=== PATIENT | male | born 1960 | race Native Hawaiian/Other Pacific Islander ===

== ENCOUNTER 2016-04-19 17:09 | Emergency (ER) | payer OTHER ==
[~2016-04-19] VITALS: Ht 188 cm; Wt 124.7 kg
[~2016-04-19 17:09] MED LIST: ALPR0.5T24 PO; CLARITIN10 MG PO; DILT30TA24 PO; DILTCAP36 PO; FLUOXETINE40 MG PO; FURO40TA93 PO; GLYDO EX; HYDR-2748 PO; LOPRESSOR100 MG PO; NEURONTIN800 MG PO; POTA20TA4 PO; PRAVACHOL80 MG PO; TRAM50TA PO; VITAMIN D32000 UNI1 PO; WARFARIN5 MG PO
[2016-04-19 17:24] VITALS: TEMP 98.3
[2016-04-19 17:49] LABS: PLATELET COUNT 379 K/uL (142-355)
[2016-04-19 18:08] LABS: POTASSIUM 4.1 mmol/L (3.6-5.2)
[2016-04-19 18:32] VITALS: BP 104/60
== END 2016-04-19 18:32 | disposition home or self-care (01) ==
LOC: ED 17:09
PROVIDERS: Emergency Medicine
DX: K52.9 Noninfective gastroenteritis and colitis, unspecified (principal)
CPT/HCPCS: 36415; 80053; 85027; 96361; 96374; 99284; J2405

== ENCOUNTER 2016-04-19 22:55 | Emergency (ER) | payer OTHER ==
[~2016-04-19] VITALS: Ht 190.5 cm; Wt 123.8 kg
[2016-04-19 23:42] VITALS: BP 132/80; TEMP 98.9
== END 2016-04-19 23:42 | disposition home or self-care (01) ==
LOC: ED 22:55
DX: R19.7 Diarrhea, unspecified (principal)
CPT/HCPCS: 99282

== ENCOUNTER 2016-08-29 16:31 | Emergency (ER) | payer OTHER ==
[~2016-08-29] VITALS: Ht 190.5 cm; Wt 126.1 kg
[2016-08-29 16:48] VITALS: TEMP 98.3
[2016-08-29 18:45] VITALS: BP 130/82
== END 2016-08-29 18:45 | disposition home or self-care (01) ==
LOC: ED 16:31
DX: J40 Bronchitis, not specified as acute or chronic (principal)
CPT/HCPCS: 96372; 99283; J0696

== ENCOUNTER 2016-09-14 19:26 | Emergency (ER) | payer OTHER ==
[~2016-09-14] VITALS: Ht 190.5 cm; Wt 127.0 kg
[2016-09-14 20:09] VITALS: BP 189/98; TEMP 99.2
== END 2016-09-14 20:28 | disposition home or self-care (01) ==
LOC: ED 19:26
PROC: 0HQFXZZ Repair Right Hand Skin, External Approach (ICD-10-PCS; principal; 2016-09-14)
DX: S61.011A Laceration without foreign body of right thumb without damage to nail, initial encounter (principal); W26.0XXA Contact with knife, initial encounter; Y92.098 Other place in other non-institutional residence as the place of occurrence of the external cause
CPT/HCPCS: 99283

== ENCOUNTER 2017-01-24 15:56 | Emergency (ER) | payer OTHER ==
[~2017-01-24] VITALS: Ht 190.5 cm; Wt 126.6 kg
[2017-01-24 16:05] VITALS: BP 113/58; TEMP 98
== END 2017-01-24 16:40 | disposition home or self-care (01) ==
LOC: ED 15:56
DX: S61.211A Laceration without foreign body of left index finger without damage to nail, initial encounter (principal); W26.0XXA Contact with knife, initial encounter; Y92.098 Other place in other non-institutional residence as the place of occurrence of the external cause
CPT/HCPCS: 99281

== ENCOUNTER 2017-03-21 05:33 | Emergency (ER) | payer OTHER ==
[~2017-03-21] VITALS: Ht 190.5 cm; Wt 131.5 kg
[2017-03-21 05:51] VITALS: TEMP 98.2
[2017-03-21 06:13] LABS: POTASSIUM 3.6 mmol/L (3.6-5.2); SODIUM 136 mmol/L (136-145)
[2017-03-21 06:28] LABS: PLATELET COUNT 247 K/uL (142-355)
[2017-03-21 07:28] VITALS: BP 132/87
== END 2017-03-21 07:29 | disposition home or self-care (01) ==
LOC: ED 05:33
DX: N39.0 Urinary tract infection, site not specified (principal); R31.9 Hematuria, unspecified
CPT/HCPCS: 36415; 80053; 81000; 85027; 99283

== ENCOUNTER 2017-03-25 08:27 | Outpatient (CLI) | payer OTHER | END 2017-03-25 08:30 | disposition short-term general hospital (02) | LOC: AMB 08:27 | DX: M54.2 Cervicalgia (principal); R07.81 Pleurodynia; V59.49XA Driver of pick-up truck or van injured in collision with other motor vehicles in traffic accident, initial encounter; Y92.488 Other paved roadways as the place of occurrence of the external cause | CPT/HCPCS: A0425; A0427 ==

== ENCOUNTER 2017-03-25 08:36 | Emergency (ER) | payer OTHER ==
[~2017-03-25] VITALS: Ht 190.5 cm; Wt 136.1 kg
[2017-03-25 11:16] VITALS: BP 127/53; TEMP 98.2
== END 2017-03-25 11:18 | disposition home or self-care (01) ==
LOC: ED 08:36
DX: S20.212A Contusion of left front wall of thorax, initial encounter (principal); S20.211A Contusion of right front wall of thorax, initial encounter; M50.30 Other cervical disc degeneration, unspecified cervical region; S10.91XA Abrasion of unspecified part of neck, initial encounter; V43.52XA Car driver injured in collision with other type car in traffic accident, initial encounter
CPT/HCPCS: 36415; 96374; 96375; 99284; J1885; J2405

== ENCOUNTER 2017-03-26 16:12 | Emergency (ER) | payer OTHER ==
[~2017-03-26] VITALS: Ht 190.5 cm; Wt 136.1 kg
[2017-03-26 16:27] VITALS: TEMP 97.9
[2017-03-26 17:51] VITALS: BP 132/62
== END 2017-03-26 17:55 | disposition home or self-care (01) ==
LOC: ED 16:12
DX: S22.39XA Fracture of one rib, unspecified side, initial encounter for closed fracture (principal)
CPT/HCPCS: 96373; 99283; J2360

== ENCOUNTER 2017-04-01 13:35 | Observation (INO) | payer OTHER ==
[~2017-04-01] VITALS: Ht 190.5 cm; Wt 135.2 kg
[2017-04-01 14:05] VITALS: BP 128/86; TEMP 98.2
[2017-04-01 17:00] VITALS: BP 146/90
[2017-04-01 17:10] LABS: PLATELET COUNT 334 K/uL (142-355)
[2017-04-01 17:20] LABS: POTASSIUM 3.9 mmol/L (3.6-5.2)
[2017-04-01 18:00] VITALS: BP 176/96
--- NOTE | 2017-04-01 18:50 | NUR ---
RECEIVED FROM ER VIA WC. ALERT AND ORIENTED X 3. PATIENT GIVEN EDUCATION REGARDING CALL LIGHT AND BED CONTROLS. INSTRUCTED TO KEEP BED IN LOW POSITION. 20G SALINE LOCK TO LAC INTACT AND PATENT. FAMILY AT BEDSIDE. NO DISTRESS NOTED.
[2017-04-01 20:12] VITALS: BP 135/89; TEMP 97.9; Ht 190.5 cm; Wt 135.2 kg
[2017-04-02] VITALS: BP 135/85; TEMP 98.4
[2017-04-02 04:00] VITALS: BP 139/77; TEMP 97.7
[2017-04-02 05:38] LABS: POTASSIUM 4.4 mmol/L (3.6-5.2)
[2017-04-02 05:53] LABS: PLATELET COUNT 322 K/uL (142-355)
[2017-04-02 07:17] VITALS: BP 144/92; TEMP 97.8
[2017-04-02 11:27] VITALS: BP 120/81; TEMP 98
[2017-04-02 11:58] LABS: PARTIAL THROMBOPLASTIN TIME 30.3 SECONDS (24.5-33.6)
[2017-04-02 16:12] VITALS: BP 145/68; TEMP 97.8
[2017-04-02 19:55] VITALS: BP 142/83; TEMP 97.7
[2017-04-03] VITALS: BP 150/75; TEMP 97.7
[2017-04-03 04:00] VITALS: BP 139/76; TEMP 97.3
[2017-04-03 06:30] LABS: PLATELET COUNT 340 K/uL (142-355)
[2017-04-03 08:00] VITALS: BP 151/78; TEMP 97.8
[2017-04-03 12:00] VITALS: BP 143/81; TEMP 98
--- NOTE | 2017-04-03 14:43 | NUR ---
20G IV TO THE LEFT AC D/C AT THIS TIME WITH TIP INTACT. DISCHARGE INSTRUCTIONS GIVEN AT THIS TIME. PT VERBALIZED UNDERSTANDING AND DISCHARGE INSTRUCTIONS WERE SIGNED AT THIS TIME. PT D/C VIA WHEELCHAIR.
== END 2017-04-03 14:45 | disposition home or self-care (01) ==
LOC: ED 13:35 → MED/SURG 17:14
DX: S06.5X9A Traumatic subdural hemorrhage with loss of consciousness of unspecified duration, initial encounter (principal); R51 Headache; I48.91 Unspecified atrial fibrillation; I10 Essential (primary) hypertension; S06.1X9A Traumatic cerebral edema with loss of consciousness of unspecified duration, initial encounter
CPT/HCPCS: 36415; 80053; 82150; 83690; 85027; 85610; 85730; 94760; 96374; 99220; 99284; G0378; J1885; J1940

== ENCOUNTER 2017-04-17 19:23 | Emergency (ER) | payer OTHER ==
[~2017-04-17] VITALS: Ht 188 cm; Wt 136.1 kg
[2017-04-17 19:58] VITALS: BP 122/74; TEMP 97.5
== END 2017-04-17 20:20 | disposition home or self-care (01) ==
LOC: ED 19:23
DX: R22.0 Localized swelling, mass and lump, head (principal)
CPT/HCPCS: 99281

== ENCOUNTER 2017-05-12 07:44 | Outpatient (CLI) | payer OTHER | END 2017-05-12 08:44 | disposition home or self-care (01) | LOC: CT 07:44 | DX: Z09 Encounter for follow-up examination after completed treatment for conditions other than malignant neoplasm (principal); Z87.820 Personal history of traumatic brain injury | CPT/HCPCS: 36415; 82565; 84520 ==

== ENCOUNTER 2018-01-21 16:15 | Emergency (ER) | payer OTHER ==
[~2018-01-21] VITALS: Ht 185.4 cm; Wt 136.1 kg
[2018-01-21 17:26] VITALS: BP 127/81; TEMP 98.1
== END 2018-01-21 17:29 | disposition home or self-care (01) ==
LOC: ED 16:15
PROC: 0HQGXZZ Repair Left Hand Skin, External Approach (ICD-10-PCS; principal; 2018-01-21)
DX: S61.211A Laceration without foreign body of left index finger without damage to nail, initial encounter (principal); X58.XXXA Exposure to other specified factors, initial encounter
CPT/HCPCS: 99283

== ENCOUNTER 2018-03-02 03:18 | Emergency (ER) | payer OTHER ==
[~2018-03-02] VITALS: Ht 185.4 cm; Wt 136.1 kg
[2018-03-02 03:28] VITALS: BP 131/94; TEMP 97.7
== END 2018-03-02 04:11 | disposition home or self-care (01) ==
LOC: ED 03:18
DX: M54.5 Low back pain (principal)
CPT/HCPCS: 99281

== ENCOUNTER 2018-07-30 06:55 | Emergency (ER) | payer OTHER ==
[~2018-07-30] VITALS: Ht 190.5 cm; Wt 136.1 kg
[2018-07-30 07:00] VITALS: TEMP 98.4
[2018-07-30] MEDS ORDERED: FERROUS SULF325 M1 PO (07:23)
[2018-07-30] MEDS ORDERED: MULTIVITAMI1 PO (07:24)
[2018-07-30 08:13] VITALS: BP 128/74
== END 2018-07-30 08:13 | disposition home or self-care (01) ==
LOC: ED 06:55
DX: M51.36 Other intervertebral disc degeneration, lumbar region (principal); X50.1XXA Overexertion from prolonged static or awkward postures, initial encounter
CPT/HCPCS: 96372; 99283; J1885

== ENCOUNTER 2018-10-22 06:20 | Emergency (ER) | payer OTHER ==
[~2018-10-22] VITALS: Ht 190.5 cm; Wt 136.1 kg
[~2018-10-22 06:20] MED LIST changes: +FERROUS SULF325 M1 PO; +MULTIVITAMI1 PO
[2018-10-22 07:30] VITALS: BP 135/85; TEMP 97.7
== END 2018-10-22 07:30 | disposition home or self-care (01) ==
LOC: ED 06:20
DX: N48.1 Balanitis (principal); N47.1 Phimosis
CPT/HCPCS: 81000; 96372; 99282; 99283; J0696

== ENCOUNTER 2019-03-08 01:48 | Emergency (ER) | payer OTHER ==
[~2019-03-08] VITALS: Ht 190.5 cm; Wt 138.3 kg
[2019-03-08 02:57] VITALS: BP 112/64; TEMP 97.7
== END 2019-03-08 02:57 | disposition home or self-care (01) ==
LOC: ED 01:48
DX: M25.512 Pain in left shoulder (principal); G89.29 Other chronic pain
CPT/HCPCS: 96372; 99283; J1885; J2930

== ENCOUNTER 2019-04-21 18:32 | Emergency (ER) | payer OTHER ==
[~2019-04-21] VITALS: Ht 190.5 cm; Wt 138.3 kg
[2019-04-21 19:50] VITALS: BP 104/42; TEMP 97.9
== END 2019-04-21 19:50 | disposition home or self-care (01) ==
LOC: ED 18:32
DX: M19.012 Primary osteoarthritis, left shoulder (principal); G89.29 Other chronic pain
CPT/HCPCS: 99282

== ENCOUNTER 2019-05-14 02:29 | Emergency (ER) | payer OTHER ==
[~2019-05-14] VITALS: Ht 190.5 cm; Wt 138.3 kg
[2019-05-14 02:55] LABS: PLATELET COUNT 288 K/uL (142-355)
[2019-05-14 03:35] LABS: POTASSIUM 3.9 mmol/L (3.6-5.2); SODIUM 140 mmol/L (136-145)
[2019-05-14 03:55] LABS: PARTIAL THROMBOPLASTIN TIME 27.9 SECONDS (24.5-33.6)
[2019-05-14 04:15] VITALS: BP 124/64; TEMP 97.9
== END 2019-05-14 04:15 | disposition home or self-care (01) ==
LOC: ED 02:29
PROVIDERS: Hospitalist
DX: I48.91 Unspecified atrial fibrillation (principal)
CPT/HCPCS: 36415; 80053; 82550; 83880; 84484; 85027; 85610; 85730; 93005; 96374; 99284; J1650; J3490

== ENCOUNTER 2019-09-06 16:21 | Emergency (ER) | payer OTHER ==
[~2019-09-06] VITALS: Ht 190.5 cm; Wt 139.7 kg
[2019-09-06 16:30] VITALS: BP 117/72; TEMP 98
== END 2019-09-06 17:21 | disposition home or self-care (01) ==
LOC: ED 16:21
DX: S91.201A Unspecified open wound of right great toe with damage to nail, initial encounter (principal); Y33.XXXA Other specified events, undetermined intent, initial encounter; Z79.02 Long term (current) use of antithrombotics/antiplatelets; Y92.89 Other specified places as the place of occurrence of the external cause
CPT/HCPCS: 99282

== ENCOUNTER 2020-03-23 05:47 | Observation (INO) | payer OTHER ==
[~2020-03-23] VITALS: Ht 190.5 cm; Wt 139.0 kg
[2020-03-23] VITALS (7 sets, daily range): BP systolic 100–169; BP diastolic 58–87; TEMP 97.6–99.3; Ht 190.5 cm; Wt 139.0 kg
[2020-03-23 06:19] LABS: PLATELET COUNT 208 K/uL (142-355)
[2020-03-23 06:28] LABS: POTASSIUM 3.4 mmol/L (3.6-5.2); SODIUM 138 mmol/L (136-145)
[2020-03-23 07:04] LABS: PARTIAL THROMBOPLASTIN TIME 29.7 SECONDS (24.5-33.6)
[2020-03-23] MEDS ORDERED: XARELTO20 MG PO (11:04)
[2020-03-24 04:00] VITALS: BP 104/59; TEMP 97.6
[2020-03-24 06:26] LABS: PLATELET COUNT 209 K/uL (142-355)
[2020-03-24 06:54] LABS: POTASSIUM 4.4 mmol/L (3.6-5.2)
[2020-03-24 08:00] VITALS: BP 127/73; TEMP 97.6
[2020-03-24 11:47] VITALS: BP 140/80; TEMP 97.6
[2020-03-24 12:00] VITALS: BP 140/80; TEMP 97.6
[2020-03-24] MEDS ORDERED: DEXAMETHASON2 MG PO (15:24)
[2020-03-24] MEDS ORDERED: ZITHROMAX500 MG PO (15:26)
== END 2020-03-24 16:38 | disposition home or self-care (01) ==
LOC: ED 05:47 → MED/SURG 06:45 → UNDODEPER 03-24 09:39 → MED/SURG 03-24 16:38
PROVIDERS: Hospitalist; ADMIT Internal Medicine Endocrinology, Diabetes & Metabolism; ATTEND Internal Medicine Endocrinology, Diabetes & Metabolism
DX: U07.1 COVID-19 (principal); J44.0 Chronic obstructive pulmonary disease with (acute) lower respiratory infection; J18.8 Other pneumonia, unspecified organism; J44.1 Chronic obstructive pulmonary disease with (acute) exacerbation; I48.20 Chronic atrial fibrillation, unspecified; Z79.01 Long term (current) use of anticoagulants; E66.01 Morbid (severe) obesity due to excess calories; Z68.38 Body mass index [BMI] 38.0-38.9, adult; Z71.3 Dietary counseling and surveillance; F41.8 Other specified anxiety disorders; I11.0 Hypertensive heart disease with heart failure; I50.9 Heart failure, unspecified
CPT/HCPCS: 36415; 80053; 82550; 83880; 84484; 85027; 85610; 85730; 87502; 87635; 87651; 93005; 96374; 99220; 99284; G0378; J1100; J1650; J1940; U0003

== ENCOUNTER 2020-03-26 20:01 | Inpatient (IN) | payer OTHER ==
[~2020-03-26] VITALS: Ht 190.5 cm; Wt 126.6 kg
[~2020-03-26 20:01] MED LIST changes: +DEXAMETHASON2 MG PO; +XARELTO20 MG PO; +ZITHROMAX500 MG PO
[2020-03-26 20:05] VITALS: BP 162/88; TEMP 98.4
[2020-03-26 20:19] VITALS: BP 162/88; TEMP 98.9
[2020-03-26 20:48] VITALS: BP 135/85
[2020-03-26 21:02] VITALS: BP 140/91
[2020-03-26 21:16] VITALS: BP 139/91
[2020-03-26 21:23] LABS: PLATELET COUNT 199 K/uL (142-355)
[2020-03-26 21:29] LABS: POTASSIUM 4.1 mmol/L (3.6-5.2)
[2020-03-26 21:35] VITALS: BP 138/76
[2020-03-27 00:24] VITALS: BP 146/70; TEMP 98.1; Ht 190.5 cm; Wt 126.6 kg
[2020-03-27 04:00] VITALS: BP 136/74; TEMP 98.1
[2020-03-27 08:00] VITALS: BP 160/76; TEMP 99
[2020-03-27 12:00] VITALS: BP 146/71; TEMP 98.4
[2020-03-27 16:00] VITALS: BP 130/73; TEMP 99.5
[2020-03-27 20:00] VITALS: BP 158/89; TEMP 100.6
[2020-03-28] VITALS (10 sets, daily range): BP systolic 113–145; BP diastolic 54–84; TEMP 97.1–99.5
[2020-03-28 05:31] LABS: PLATELET COUNT 166 K/uL (142-355)
[2020-03-28 06:38] LABS: POTASSIUM 4.8 mmol/L (3.6-5.2)
[2020-03-29] VITALS (20 sets, daily range): BP systolic 100–166; BP diastolic 45–100; TEMP 97.5–99
[2020-03-29 08:52] LABS: POTASSIUM 4.5 mmol/L (3.6-5.2)
[2020-03-29 09:42] LABS: PLATELET COUNT 214 K/uL (142-355)
[2020-03-30] VITALS (20 sets, daily range): BP systolic 13–163; BP diastolic 56–95; TEMP 98.7–98.8
[2020-03-30 05:59] LABS: PLATELET COUNT 231 K/uL (142-355)
[2020-03-30 06:50] LABS: POTASSIUM 4.6 mmol/L (3.6-5.2)
[2020-03-31] VITALS (20 sets, daily range): BP systolic 90–172; BP diastolic 51–98; TEMP 97–98.6
[2020-04-01] VITALS (11 sets, daily range): BP systolic 97–128; BP diastolic 48–105; TEMP 97.9–98.6
[2020-04-01 05:57] LABS: POTASSIUM 4.9 mmol/L (3.6-5.2)
[2020-04-02 04:00] VITALS: BP 120/63; TEMP 98.3
[2020-04-02 04:07] LABS: POTASSIUM 5.2 mmol/L (3.6-5.2)
[2020-04-02 08:00] VITALS: BP 145/90; TEMP 97.7
[2020-04-02 12:00] VITALS: BP 148/93; TEMP 97.9
[2020-04-02 15:47] VITALS: BP 132/80; TEMP 97.6
[2020-04-02 20:00] VITALS: BP 122/68; TEMP 97.9
[2020-04-02 23:43] VITALS: BP 117/61; TEMP 98.4
[2020-04-03 04:00] VITALS: BP 133/84; TEMP 98.1
[2020-04-03 08:00] VITALS: BP 127/73; TEMP 97.9
[2020-04-03 12:00] VITALS: BP 113/65; TEMP 98.3
[2020-04-03 16:00] VITALS: BP 121/52; TEMP 98
[2020-04-03 20:00] VITALS: BP 102/60; TEMP 98.3
[2020-04-04 00:15] VITALS: BP 109/57; TEMP 98.2
[2020-04-04 04:00] VITALS: BP 117/63; TEMP 98.3
[2020-04-04 08:00] VITALS: BP 134/59; TEMP 97.9
[2020-04-04 08:47] LABS: PLATELET COUNT 215 K/uL (142-355)
[2020-04-04 12:00] VITALS: BP 117/42; TEMP 98.2
[2020-04-04 16:00] VITALS: BP 125/43; TEMP 98.4
[2020-04-04 20:00] VITALS: BP 122/55; TEMP 98.2
[2020-04-05 00:20] VITALS: BP 116/96; TEMP 98.1
[2020-04-05 04:14] VITALS: BP 126/80; TEMP 97.7
[2020-04-05 05:26] LABS: PLATELET COUNT 199 K/uL (142-355)
[2020-04-05 05:44] LABS: POTASSIUM 4.1 mmol/L (3.6-5.2)
[2020-04-05 08:00] VITALS: BP 113/68; TEMP 98.5
[2020-04-05 12:00] VITALS: BP 133/65; TEMP 97.7
[2020-04-05 16:00] VITALS: BP 103/47; TEMP 98.4
[2020-04-05 20:21] VITALS: BP 121/71; TEMP 98.1
[2020-04-06 00:13] VITALS: BP 112/67; TEMP 98.9
[2020-04-06 04:00] VITALS: BP 117/81; TEMP 97.9
[2020-04-06 05:59] LABS: PLATELET COUNT 174 K/uL (142-355)
[2020-04-06 06:30] LABS: POTASSIUM 4.7 mmol/L (3.6-5.2)
[2020-04-06 08:00] VITALS: BP 113/43; TEMP 98
[2020-04-06 12:00] VITALS: BP 132/79; TEMP 98.2
[2020-04-06 16:00] VITALS: BP 115/43; TEMP 98.1
[2020-04-06 20:00] VITALS: BP 120/71; TEMP 98.2
[2020-04-07] VITALS: BP 143/68; TEMP 97.8
[2020-04-07 04:00] VITALS: BP 130/66; TEMP 98.1
[2020-04-07 08:00] VITALS: BP 132/85; TEMP 97.6
[2020-04-07 08:18] LABS: PLATELET COUNT 219 K/uL (142-355)
[2020-04-07 08:34] LABS: POTASSIUM 4.4 mmol/L (3.6-5.2)
[2020-04-07 12:00] VITALS: BP 108/74; TEMP 97.7
[2020-04-07 16:05] VITALS: BP 112/64; TEMP 97.4
[2020-04-07 20:00] VITALS: BP 124/83; TEMP 98
[2020-04-08] VITALS (7 sets, daily range): BP systolic 103–140; BP diastolic 50–80; TEMP 97.4–98.5
[2020-04-08 06:13] LABS: PLATELET COUNT 211 K/uL (142-355)
[2020-04-08 06:23] LABS: POTASSIUM 4.8 mmol/L (3.6-5.2)
[2020-04-09] VITALS: BP 128/65; TEMP 98.5
[2020-04-09 04:19] VITALS: BP 121/51; TEMP 98.1
[2020-04-09 05:35] LABS: PLATELET COUNT 184 K/uL (142-355)
[2020-04-09 08:00] VITALS: BP 143/76; TEMP 97.9
[2020-04-09 12:00] VITALS: BP 123/74; TEMP 97.9
[2020-04-09 16:00] VITALS: BP 112/69; TEMP 97.9
[2020-04-09 20:00] VITALS: BP 120/51; TEMP 98.2
[2020-04-10 00:04] VITALS: BP 102/61; TEMP 98.8
[2020-04-10 04:00] VITALS: BP 122/74; TEMP 97.8
[2020-04-10 05:11] LABS: PLATELET COUNT 178 K/uL (142-355)
[2020-04-10 05:30] LABS: POTASSIUM 4.4 mmol/L (3.6-5.2)
[2020-04-10 08:00] VITALS: BP 124/79; TEMP 97.9
[2020-04-10 12:00] VITALS: BP 100/40; TEMP 97.8
[2020-04-10 16:00] VITALS: BP 119/74; TEMP 97.9
[2020-04-10 20:00] VITALS: BP 90/66; TEMP 98.5
[2020-04-11] VITALS (12 sets, daily range): BP systolic 97–118; BP diastolic 48–76; TEMP 98.2–99.2
[2020-04-11 05:43] LABS: PLATELET COUNT 148 K/uL (142-355)
[2020-04-11 06:06] LABS: POTASSIUM 4.4 mmol/L (3.6-5.2)
[2020-04-11 16:45] LABS: PLATELET COUNT 185 K/uL (142-355)
[2020-04-11 16:56] LABS: POTASSIUM 4.3 mmol/L (3.6-5.2); SODIUM 137 mmol/L (136-145)
[2020-04-12] VITALS (22 sets, daily range): BP systolic 91–130; BP diastolic 49–79; TEMP 97.1–98.7
[2020-04-12 05:35] LABS: PLATELET COUNT 146 K/uL (142-355)
[2020-04-12 05:47] LABS: POTASSIUM 4.8 mmol/L (3.6-5.2)
[2020-04-13] VITALS (35 sets, daily range): BP systolic 100–168; BP diastolic 32–99; TEMP 96.7–98.5
[2020-04-13 05:51] LABS: PLATELET COUNT 155 K/uL (142-355)
[2020-04-13 06:01] LABS: POTASSIUM 4.5 mmol/L (3.6-5.2)
[2020-04-14] VITALS (43 sets, daily range): BP systolic 97–138; BP diastolic 53–90; TEMP 96.6–99.1
[2020-04-14 04:53] LABS: PLATELET COUNT 147 K/uL (142-355)
[2020-04-14 05:10] LABS: POTASSIUM 4.7 mmol/L (3.6-5.2)
[2020-04-15] VITALS (29 sets, daily range): BP systolic 101–1322; BP diastolic 53–88; TEMP 98.1–99.9
[2020-04-15 05:13] LABS: PLATELET COUNT 144 K/uL (142-355)
[2020-04-15 05:56] LABS: POTASSIUM 5.4 mmol/L (3.6-5.2)
[2020-04-16] VITALS (23 sets, daily range): BP systolic 12–140; BP diastolic 21–88; TEMP 98.7–99.3
[2020-04-16 06:33] LABS: PLATELET COUNT 151 K/uL (142-355)
[2020-04-17] VITALS (23 sets, daily range): BP systolic 91–152; BP diastolic 50–76; TEMP 97.9–100.1
[2020-04-17 05:48] LABS: PLATELET COUNT 155 K/uL (142-355)
[2020-04-17 06:12] LABS: POTASSIUM 5.1 mmol/L (3.6-5.2)
[2020-04-18] VITALS (22 sets, daily range): BP systolic 94–155; BP diastolic 39–85; TEMP 97.9–98.6
[2020-04-18 05:50] LABS: PLATELET COUNT 175 K/uL (142-355)
[2020-04-18 06:00] LABS: POTASSIUM 4.5 mmol/L (3.6-5.2)
[2020-04-19] VITALS (24 sets, daily range): BP systolic 103–158; BP diastolic 50–84; TEMP 98.8–100.1
[2020-04-19 05:33] LABS: PLATELET COUNT 154 K/uL (142-355)
[2020-04-19 05:57] LABS: POTASSIUM 3.8 mmol/L (3.6-5.2)
[2020-04-19 14:11] LABS: PLATELET COUNT 134 K/uL (142-355)
[2020-04-20] VITALS (26 sets, daily range): BP systolic 97–138; BP diastolic 43–73; TEMP 98–99.8
[2020-04-20 05:14] LABS: PLATELET COUNT 112 K/uL (142-355)
[2020-04-20 05:41] LABS: POTASSIUM 4.1 mmol/L (3.6-5.2)
[2020-04-21] VITALS (25 sets, daily range): BP systolic 109–161; BP diastolic 45–84; TEMP 98.9–99.1
[2020-04-21 06:12] LABS: POTASSIUM 3.8 mmol/L (3.6-5.2)
[2020-04-21 06:16] LABS: PLATELET COUNT 77 K/uL (142-355)
[2020-04-22] VITALS (53 sets, daily range): BP systolic 90–166; BP diastolic 33–93; TEMP 98.3–99.2
[2020-04-22 05:39] LABS: PLATELET COUNT 68 K/uL (142-355)
[2020-04-22 06:05] LABS: POTASSIUM 4.4 mmol/L (3.6-5.2)
[2020-04-23] VITALS (46 sets, daily range): BP systolic 98–171; BP diastolic 34–99; TEMP 98.8–99.3
[2020-04-23 06:26] LABS: PLATELET COUNT 60 K/uL (142-355)
[2020-04-23 06:33] LABS: POTASSIUM 4.6 mmol/L (3.6-5.2)
[2020-04-24] VITALS (70 sets, daily range): BP systolic 58–150; BP diastolic 22–92; TEMP 97.9–100.8
[2020-04-24 05:04] LABS: POTASSIUM 4.6 mmol/L (3.6-5.2)
[2020-04-24 05:27] LABS: PLATELET COUNT 55 K/uL (142-355)
[2020-04-25] VITALS (13 sets, daily range): BP systolic 97–151; BP diastolic 35–127; TEMP 99.9–100
[2020-04-25 05:16] LABS: PLATELET COUNT 45 K/uL (142-355)
[2020-04-25 05:25] LABS: POTASSIUM 3.4 mmol/L (3.6-5.2)
== END 2020-04-25 12:20 | disposition expired | DRG 207 ==
LOC: ED 20:01 → PCU 21:16 → MED/SURG 21:16 → PCU 03-28 17:58 → MED/SURG 04-01 15:05 → ICU 04-11 15:45
PROVIDERS: Emergency Medicine Emergency Medical Services; Internal Medicine; ADMIT Internal Medicine Endocrinology, Diabetes & Metabolism; ATTEND Internal Medicine Endocrinology, Diabetes & Metabolism
PROC: 5A1955Z Respiratory Ventilation, Greater than 96 Consecutive Hours (ICD-10-PCS; principal; 2020-04-13)
PROC: 0BH17EZ Insertion of Endotracheal Airway into Trachea, Via Natural or Artificial Opening (ICD-10-PCS; 2020-04-13)
PROC: 05HM33Z Insertion of Infusion Device into Right Internal Jugular Vein, Percutaneous Approach (ICD-10-PCS; 2020-04-13)
PROC: 5A12012 Performance of Cardiac Output, Single, Manual (ICD-10-PCS; 2020-04-25)
DX: U07.1 COVID-19 (principal); J18.8 Other pneumonia, unspecified organism; J44.0 Chronic obstructive pulmonary disease with (acute) lower respiratory infection; J44.1 Chronic obstructive pulmonary disease with (acute) exacerbation; I48.20 Chronic atrial fibrillation, unspecified; B37.0 Candidal stomatitis; K92.2 Gastrointestinal hemorrhage, unspecified; Z79.01 Long term (current) use of anticoagulants; E66.01 Morbid (severe) obesity due to excess calories; Z68.38 Body mass index [BMI] 38.0-38.9, adult; Z71.3 Dietary counseling and surveillance; F41.8 Other specified anxiety disorders; I25.2 Old myocardial infarction; I25.10 Atherosclerotic heart disease of native coronary artery without angina pectoris; D50.8 Other iron deficiency anemias; G62.89 Other specified polyneuropathies; I11.0 Hypertensive heart disease with heart failure; I50.9 Heart failure, unspecified; E09.65 Drug or chemical induced diabetes mellitus with hyperglycemia; T38.0X5A Adverse effect of glucocorticoids and synthetic analogues, initial encounter
CPT/HCPCS: 31500; 36415; 36591; 36600; 80048; 80053; 80061; 80162; 80202; 81000; 82271; 82550; 82805; 82947; 83735; 83880; 83986; 84100; 84484; 85007; 85027; 87040; 87088; 93005; 94002; 94003; 94640; 94660; 94664; 94667; 94668; 94760; 96365; 96375; 99284; C1768; J0132; J0171; J0282; J0330; J0456; J0696; J1100; J1160; J1650; J1815; J1885; J1940; J1956; J2060; J2185; J2250; J2270; J2405; J2920; J3020; J3370; J3490; J7060; P9047